=== PATIENT | male | born 1975 | race Caucasian/White ===

== ENCOUNTER 2024-10-22 09:07 | Emergency (ER) | payer OTHER, SELFPAY ==
[2024-10-22 09:09] VITALS: BP 116/84
--- NOTE | 2024-10-22 09:38 | ED.GENMED ---
History of Present Illness
General
Chief Complaint: Abdominal Symptoms
Source: patient
Exam Limitations: none
Time Seen by Provider: 10/22/24 09:24
History of Present Illness
History of Present Illness:
48-year-old male presents with worsening epigastric abdominal pain since last evening. There is no associated nausea or vomiting. No significant chest pain. The pain is made worse with motion. He states he is under a lot of stress as he is going
through the sale of the house. He recently started testosterone injections. He also has been dealing with sinus issues and initially took Zithromax but it was not helping so he started Augmentin. He has had 2 doses of Augmentin. He denies any
black or dark-colored stools. No fever. He drinks 1 to 200 mg of caffeine daily. Denies regular use of alcohol or NSAIDs. No other complaints
Past History
Past History
ED Past Medical History: None
ED Past Surgical History: Orthopedic
Phy Exam
Physical Exam
Physical Exam:
General: Well-appearing male no acute respiratory distress
HEENT: Normocephalic atraumatic
Heart: Regular rate and rhythm
Lungs: Clear no wheeze
Abdomen soft tender to the right upper quadrant and epigastric region. No guarding or rebound
Extremities: No cyanosis
Course
Orders/Labs/Results
Orders:
Orders
10/22/24 09:15
ECG [Electrocardiogram (*1)] Urgent
Reason for Study: Chest Pain
EKG- Treatment ONCE
10/22/24 09:22
Complete Blood Count/With Diff Urgent
Comprehensive Metabolic Panel Urgent
Lipase Urgent
Troponin I Urgent
10/22/24 09:37
CT Abd/pelvis W Iv Cont Urgent
Comment:
Reason For Exam: abdominal pain
Famotidine [Pepcid] 20 mg IV NOW STA
10/22/24 10:38
0.9% Sodium Chloride 1000 ml [Nss] 1,000 ml IV BOLUS
Abnormal Lab Results
10/22/24
09:22
RBC 4.62 L 10^6/uL
(4.70-6.10)
Absolute Neuts (auto) 9.0 H 10^3/uL
(1.4-6.5)
Absolute Lymphs (auto) 0.7 L 10^3/uL
(1.2-3.4)
Absolute Monos (auto) 0.9 H 10^3/uL
(0.1-0.6)
Neutrophils % 83.2 H %
(42.2-75.2)
Lymphocytes % 6.8 L %
(20.5-51.1)
Glucose 105 H mg/dl
(70-99)
Lipase 1947 H* U/L
(23-300)
10/22/24 09:22
10/22/24 09:22
Vital Signs
Initial and Last Documented VS:
Initial Vital Signs
Temp Pulse Resp BP Pulse Ox
98.4 F 100 16 116/84 99
10/22/24 09:09 10/22/24 09:09 10/22/24 09:09 10/22/24 09:09 10/22/24 09:09
Last Documented Vital Signs
Temp Pulse Resp BP Pulse Ox
97.6 F 74 16 123/74 100
10/22/24 09:57 10/22/24 09:57 10/22/24 09:57 10/22/24 09:57 10/22/24 09:57
MDM/Problems Addressed
Differential Diagnosis Includes:
Patient without abdominal pain. Consider gastritis versus pancreatitis versus biliary colic. Will check labs including lipase and troponin. EKG shows sinus rhythm without ischemic changes. Patient is quite tender on exam. CT pending.
*Critical Care Note
Total Time (30-74mins, 75-104mins- exclusive of procedures): Not Applicable
Update Note
Update Note:
Workup with acute pancreatitis. CT without other findings. There is a cyst noted within the abdominal cavity between the left kidney and pancreas. This is smaller than has been seen in the past on previous MRI. Offered patient admission for
acute otitis however he wishes to go home. In this case, he is not vomiting his pain is tolerable he got a liter of fluid. Return precautions were given but I did advise he follow-up with GI for further evaluation.
ED Attending Note
-
Portions of this chart may have been created with voice recognition software.� Occasional wrong word or��sound alike� substitutions may have occurred due to the inherent limitations of voice recognition software.
Discharge Plan
Departure
Patient Disposition: Home (Routine Discharge)
Date of Disposition: 10/22/24
Time of Disposition: 12:33
Patient with high blood pressure during this ER visit?: No
Discharge Problem:
Acute pancreatitis
Instructions: Acute pancreatitis
Prescriptions:
No Action
No Current Medications
0
Referrals:
NONE,* [Family Provider] -
Ingris Lantigua MD [Active] -
Activity Restrictions/Additional Instructions:
Drink plenty of clear liquids. You may use Tylenol if needed for pain. Return here for increasing pain fever vomiting or other concerning finding. Follow-up with GI otherwise
Interventions
Interventions:
*Risk Screen - Suicide Last Done: 10/22/24 09:13
*General Assessment Last Done: 10/22/24 09:57
*Neglect/Abuse Screening Last Done: 10/22/24 09:57
*ED- Fall Risk Assessment Last Done: 10/22/24 09:57
*ED COVID-19 Vaccine History Last Done: 10/22/24 09:57
LU-Dacyzl-Ksuamdrtkj Assessment Last Done: 10/22/24 09:57
Discharge Date and Time
Print Language: SLOVAK
[2024-10-22 09:56] VITALS: BMI 25.8
[2024-10-22 09:57] VITALS: BP 123/74
[2024-10-22 09:57] LABS: % Basophils 0.4 % (0-2); % Eosinophils 1.2 % (0-6); % Immature Granulocytes 0.4 % (0-0.5); % Lymphocytes 6.8 % (20.5-51.1); % Neutrophils 83.2 % (42.2-75.2); Absolute Eosinophils 0.1 10^3/uL (0-0.7); Absolute Lymphocytes 0.7 10^3/uL (1.2-3.4); Absolute Monocytes 0.9 10^3/uL (0.1-0.6); Hematocrit 42.1 % (39.0-52.0); Hemoglobin 14.2 g/dL (13.0-18.0); Mean Corp Hgb Conc. 33.7 g/dL (33.0-37.0); Mean Corpuscular Hgb 30.7 pg (27.0-31.0); Mean Corpuscular Volume 91.1 fL (80.0-94.0); Nucleated Red Blood Cells % 0 % (-); Platelet Count 257 10^3/uL (130-400); Red Blood Cell Count 4.62 10^6/uL (4.70-6.10); Red Cell Dist. Width 12.2 % (11.5-14.5); White Blood Cell Count 10.8 10^3/uL (4.8-10.8)
[2024-10-22 10:00] VITALS: BP 115/78
[2024-10-22 10:07] LABS: ALT (SGPT) 19 U/L (0-50); AST (SGOT) 24 U/L (17-59); Albumin 4.6 g/dl (3.5-5.0); Alkaline Phosphatase 56 U/L (38-126); Blood Urea Nitrogen 13 mg/dl (9-20); Calcium 9.8 mg/dl (8.4-10.2); Carbon Dioxide 30 mmol/L (22-30); Chloride 104 mmol/L (98-107); Estimated Creatinine Clearance 104 ml/min; Glucose 105 mg/dl (70-99); Potassium 4.2 mmol/L (3.5-5.1); Sodium 140 mmol/L (135-145); Total Bilirubin 0.7 mg/dl (0.2-1.3); Total Protein 7.1 g/dl (6.3-8.2); eGFR > 60.00
[2024-10-22] MEDS: PEPCID 20 MG IV (10:09)
[2024-10-22 10:13] LABS: Troponin I 0.016 ng/ml
[2024-10-22 10:17] LABS: Lipase 1947 U/L (23-300)
[2024-10-22] MEDS: NSS 1000 IV (11:03)
== END 2024-10-22 12:38 | disposition home or self-care (01) ==
LOC: EMR 09:07
PROVIDERS: EMERGENCY PHYSICIAN Emergency Medicine
DX: K85.90 Acute pancreatitis without necrosis or infection, unspecified (principal)
CPT/HCPCS: 96374; 96361; 99284; 74177; 80053; 83690; 84484; 85025; 93005; Q9967